=== PATIENT | male | born 1980 | race African-American/Black ===

== ENCOUNTER 2023-12-17 16:28 | Emergency (ER) | payer MEDICAID ==
[~2023-12-17] VITALS: Ht 182.9 cm; Wt 95.0 kg
[2023-12-17 17:13] VITALS: BP 132/65; PULSE 89; TEMP 98.2; O2SAT 99
[2023-12-17 19:17] VITALS: RESP 17
[2023-12-17] MEDS: IBUPROFEN 600MG TABLET PO ONE (19:17)
[2023-12-17] MEDS: HYDROCODONE/ACETAMINOPHEN 5/325MG TABLET PO ONE (19:20)
[2023-12-17] MEDS ORDERED: HYDR-4001 MT (20:19)
[2023-12-17] MEDS ORDERED: IBUP-2029 MT (20:19)
== END 2023-12-17 22:30 | disposition home or self-care (01) ==
LOC: ER 16:28
DX: S82.141A Displaced bicondylar fracture of right tibia, initial encounter for closed fracture (principal); Y08.89XA Assault by other specified means, initial encounter; Y93.89 Activity, other specified; Y92.89 Other specified places as the place of occurrence of the external cause; Y99.8 Other external cause status
CPT/HCPCS: 73590; 29125; 99283; Z7610; L1830